=== PATIENT | female | born 1935 | race Caucasian/White ===

== ENCOUNTER 2017-05-21 19:28 | Emergency (ER) | payer OTHER ==
[2017-05-21 19:45] VITALS: BP 156/77; PULSE 75; TEMP 98.1; BMI 21.9
--- NOTE | 2017-05-21 20:18 | PDOC ---
History of Present Illness - General History Source: Patient, Family Exam Limitations: No Limitations - History of Present Illness Initial Comments: 05/21/17 20:40 The patient is an 82 year old female with past medical history of hypertension and diabetes who presents to the ED with complaints of nausea, vomiting, and diarrhea since yesterday. She also reports a throbbing heartbeat feeling in her stomach as well. The patient reports multiple episodes of nonbloody/ nonbilious vomiting yesterday with one episode today. She denies any blood in her stool. She reports the only thing she ate today was soup. The patient denies any recent illness, fever, chills, cough, shortness of breath, chest pain , or urinary symptoms. <Karma Ngo - Last Filed: 05/22/17 02:23> <Maddy Sewell - Last Filed: 05/22/17 03:20> - General Chief Complaint: Vomiting/Diarrhea Stated Complaint: VOMITING/DIARRHEA Time Seen by Provider: 05/21/17 19:51 Past History <Karma Ngo - Last Filed: 05/22/17 02:23> - Past Medical History Diabetes: Yes HTN: Yes - Surgical History Cholecystectomy: Yes - Psycho/Social/Smoking Cessation Hx Suicidal Ideation: No Smoking History: Never smoked <Maddy Sewell - Last Filed: 05/22/17 03:20> - Past Medical History Allergies/Adverse Reactions: Allergies Allergy/AdvReac Type Severity Reaction Status Date / Time No Known Allergies Allergy Verified 05/21/17 19:45 Home Medications: Ambulatory Orders NK [No Known Home Medication] 05/21/17 Review of Systems - Review of Systems Able to Perform ROS?: Yes Comments:: 05/21/17 20:40 GENERAL/CONSTITUTIONAL: No fever or chills. No weakness. HEAD, EYES, EARS, NOSE AND THROAT: No change in vision. No ear pain or discharge. No sore throat. CARDIOVASCULAR: No chest pain or shortness of breath. RESPIRATORY: No cough, wheezing, or hemoptysis. GASTROINTESTINAL: Present: nausea, vomiting, diarrhea No constipation. GENITOURINARY: No dysuria, frequency, or change in urination. MUSCULOSKELETAL: No joint or muscle swelling or pain. No neck or back pain. SKIN: No rash NEUROLOGIC: No headache, vertigo, loss of consciousness, or change in strength/ sensation. ENDOCRINE: No increased thirst. No abnormal weight change. HEMATOLOGIC/LYMPHATIC: No anemia, easy bleeding, or history of blood clots. ALLERGIC/IMMUNOLOGIC: No hives or skin allergy. <Karma Ngo - Last Filed: 05/22/17 02:23> *Physical Exam - Vital Signs Last Vital Signs Temp Pulse Resp BP Pulse Ox 98.1 F 75 18 156/77 99 05/21/17 19:43 05/21/17 19:43 05/21/17 19:43 05/21/17 19:43 05/21/17 19:43 <Karma Ngo - Last Filed: 05/22/17 02:23> - Vital Signs Last Vital Signs Temp Pulse Resp BP Pulse Ox 98.1 F 75 18 156/77 99 05/21/17 19:43 05/21/17 19:43 05/21/17 19:43 05/21/17 19:43 05/21/17 19:43 - Physical Exam Comments: GENERAL: Awake, alert, and fully oriented, in no acute distress HEAD: No signs of trauma EYES: PERRLA, EOMI, sclera anicteric, conjunctiva clear ENT: Auricles normal inspection, hearing grossly normal, nares patent, oropharynx clear without exudates. Dry mucosa NECK: Normal ROM, supple, no lymphadenopathy, JVD, or masses LUNGS: Breath sounds equal, clear to auscultation bilaterally. No wheezes, and no crackles HEART: Regular rate and rhythm, normal S1 and S2, no murmurs, rubs or gallops ABDOMEN: Soft, nontender, +hyperactive bowel sounds. No guarding, no rebound. +Prominent aortic pulsation in mid-abdomen. EXTREMITIES: Normal range of motion, no edema. No clubbing or cyanosis. No cords, erythema, or tenderness NEUROLOGICAL: Cranial nerves II through XII grossly intact. Normal speech, normal gait SKIN: Warm, Dry, normal turgor, no rashes or lesions noted. <Maddy Sewell - Last Filed: 05/22/17 03:20> ED Treatment Course - LABORATORY CBC & Chemistry Diagram: 05/21/17 21:22 05/21/17 21:22 - RADIOLOGY Radiograph Interpretation: 05/22/17 02:23 EXAM: CTA ABDOMEN AND PELVIS and CTA CHEST CHEST No pulmonary embolism. No aortic dissection or aneurysm. No pneumonia or pleural effusions. ABDOMEN/ PELVIS No aortic dissection or aneurysm. Hepatic and splenic arteries each originate from aorta. No bowel obstruction, colitis, or free air. Appendix not seen. Unremarkable pancreas. Cortical scarring left greater than right kidneys. Heterogeneous liver attenuation, possibly transient hepatic attenuation differences. Cholecystectomy. Small ascites. THIS DOCUMENT HAS BEEN ELECTRONICALLY SIGNED Tonia Hanks M.D. <Karma Ngo - Last Filed: 05/22/17 02:23> - LABORATORY CBC & Chemistry Diagram: 05/21/17 21:22 05/21/17 21:22 <Maddy Sewell - Last Filed: 05/22/17 03:20> Medical Decision Making - Medical Decision Making CT read by imaging online advertising analyst. No acute findings- no dissection, no aneurysm. Patient states she is feeling better, able to tolerate PO. Stable for DC home, outpatient f/u with PMD. <Maddy Sewell - Last Filed: 05/22/17 03:20> *DC/Admit/Observation/Transfer - Attestations Scribe Attestion: 05/21/17 20:41 Documentation prepared by Karma Ngo, acting as medical record clerk for Maddy Sewell MD. <Karma Ngo - Last Filed: 05/22/17 02:23> - Discharge Dispostion Admit: No <Maddy Sewell - Last Filed: 05/22/17 03:20> Diagnosis at time of Disposition: Nausea vomiting and diarrhea - Discharge Dispostion Disposition: HOME Condition at time of disposition: Stable - Referrals Referrals: Elizabeth Chilel MD [Primary Care Provider] - - Patient Instructions Printed Discharge Instructions: DI for Vomiting -- Adult Print Language: INDONESIAN
[2017-05-21] MEDS ORDERED: FAMOTIDINE 20 MG/50 ML IVPB 50 ML IVPB ONE ×2 (20:20→20:58)
[2017-05-21] MEDS ORDERED: SODIUM CHLORIDE 1,000 ML IV STA (20:20)
[2017-05-21] MEDS ORDERED: ONDANSETRON 4 MG/2 ML VIAL IVPUSH ONE (20:20)
[2017-05-21] MEDS ORDERED: ONDANSETRON 4 MG/2 ML VIAL ONE (20:57)
[2017-05-21 21:32] LABS: BASOPHIL 1.2 % (0-2.0); MCH 28.1 pg (25.7-33.7); MCHC 34.7 g/dl (32.0-36.0); MEAN PLT VOLUME 7.7 fl (7.5-11.1); NEUTROPHILS 58.3 % (42.8-82.8); PLATELET COUNT 255 K/MM3 (134-434); RDW 14.4 % (11.6-15.6); WHITE BLOOD COUNT 5.8 K/mm3 (4.0-10.0)
[2017-05-21 21:34] LABS: URINE APPEARANCE CLEAR; URINE BILIRUBIN NEGATIVE (NEGATIVE); URINE BLOOD NEGATIVE (NEGATIVE); URINE COLOR COLORLESS; URINE GLUCOSE (UA) NEGATIVE (NEGATIVE); URINE KETONE TRACE (NEGATIVE); URINE NITRITE NEGATIVE (NEGATIVE); URINE PROTEIN NEGATIVE (NEGATIVE); URINE UROBILINOGEN NEGATIVE mg/dL (0.2-1.0)
[2017-05-21 21:39] LABS: URINE LEUK ESTERASE TRACE (NEGATIVE)
[2017-05-21 21:41] LABS: URINE RBC 1 /hpf (0-3); URINE WBC 9 /hpf (3-5)
[2017-05-21 22:09] LABS: ALBUMIN 4.2 g/dl (3.4-5.0); ALK PHOS 86 U/L (45-117); ANION GAP 8 (8-16); BILIRUBIN,TOTAL 0.5 mg/dL (0.2-1.0); CALCIUM 9.7 mg/dL (8.5-10.1); CO2 31 mmol/L (21-32); GLUCOSE,RANDOM 101 mg/dL (74-106); SGOT/AST 24 U/L (15-37); SGPT/ALT 20 U/L (12-78); TOT PROT 7.6 g/dl (6.4-8.2)
== END 2017-05-22 02:46 | disposition home or self-care (01) ==
LOC: JER 19:28
PROC: 3E033GC Introduction of Other Therapeutic Substance into Peripheral Vein, Percutaneous Approach (ICD-10-PCS; principal; 2017-05-21)
DX: R11.2 Nausea with vomiting, unspecified (principal); R19.7 Diarrhea, unspecified
CPT/HCPCS: 36415; 71275-TC; 74174-TC; 80053; 81003; 81015; 83605; 83690; 85025; 96365; 96375; 99282-25

== ENCOUNTER 2018-06-04 09:02 | Inpatient (IN) | payer OTHER ==
[2018-06-04 09:07] VITALS: BMI 17.2
[2018-06-04] MEDS ORDERED: ONDANSETRON 4 MG/2 ML VIAL IVPB ONE (09:35)
[2018-06-04] MEDS ORDERED: FAMOTIDINE 20 MG/50 ML IVPB 20 MG/50 ML MG IVPB ONE (09:35)
[2018-06-04] MEDS ORDERED: SODIUM CHLORIDE 1,000 ML IV ONE ×3 (09:35→11:31)
[2018-06-04] MEDS ORDERED: ONDANSETRON 4 MG/2 ML VIAL ONE (09:40)
[2018-06-04 09:53] LABS: BASO % 0.5 % (0-2.0); EOS % 0.3 % (0-4.5); HEMATOCRIT 38.8 % (32.4-45.2); HEMOGLOBIN 13.9 GM/dL (10.7-15.3); LYMPH % 17.7 % (8-40); MCH 28.5 pg (25.7-33.7); MCHC 35.9 g/dl (32.0-36.0); MEAN CELL VOLUME 79.3 fl (80-96); MEAN PLT VOLUME 7.8 fl (7.5-11.1); MONO % 5.6 % (3.8-10.2); NEUT % 75.9 % (42.8-82.8); PLATELET COUNT 322 K/MM3 (134-434); RBC 4.89 M/mm3 (3.60-5.2); RDW 13.8 % (11.6-15.6); WHITE BLOOD COUNT 5.3 K/mm3 (4.0-10.0)
[2018-06-04 09:57] LABS: URINE APPEARANCE CLEAR; URINE BILIRUBIN NEGATIVE (<2.0 mg/dL); URINE COLOR STRAW; URINE GLUCOSE (UA) NEGATIVE (NEGATIVE); URINE KETONE TRACE (NEGATIVE); URINE LEUK ESTERASE NEGATIVE (NEGATIVE); URINE NITRITE NEGATIVE (NEGATIVE); URINE UROBILINOGEN NEGATIVE mg/dL (0.2-1.0)
--- NOTE | 2018-06-04 10:07 | PDOC ---
History of Present Illness <Markus Hooks - Last Filed: 06/04/18 11:14> - General History Source: Patient Exam Limitations: No Limitations - History of Present Illness Initial Comments: 06/04/18 10:21 The patient is an 83-year-old, with a significant past medical history of HTN, diabetes, and chronic gastritis, who presents to the ED with a gastritis flare up today. The patient was recently admitted to the [facility] 2 weeks ago for gastritis symptoms and was rehydrated. She presents to the ED with upper abdominal pain with nonbloody/nonbilious vomiting. She reports that her symptoms are sometimes associated with diarrhea, but not on this occasion; stool is soft and nonbloody. Last endoscopy was 1 year ago. Patient is s/p gallbladder and appendix removal. The patient denies any fever, chills, or diarrhea. Denies any shortness of breath or chest pain. Allergies: NKA Surgical History: cholecystectomy and appendectomy Social History: None reported <Amy Rowley - Last Filed: 06/04/18 11:57> - General Chief Complaint: Nausea/Vomiting Stated Complaint: VOMITING Time Seen by Provider: 06/04/18 09:20 Past History - Past Medical History COPD: No Diabetes: Yes GI Disorders: Yes (gastritis) HTN: Yes - Surgical History Cholecystectomy: Yes - Suicide/Smoking/Psychosocial Hx Smoking History: Never smoked <Markus Hooks - Last Filed: 06/04/18 11:14> <Amy Rowley - Last Filed: 06/04/18 11:57> - Past Medical History Allergies/Adverse Reactions: Allergies Allergy/AdvReac Type Severity Reaction Status Date / Time No Known Allergies Allergy Verified 06/04/18 09:03 Home Medications: Ambulatory Orders Clonidine HCl 0.1 mg PO DAILY 06/04/18 Hydrochlorothiazide 12.5 mg PO DAILY 06/04/18 Valsartan 320 mg PO DAILY 06/04/18 Review of Systems - Review of Systems Constitutional: Yes: Weakness. No: Chills, Fever Respiratory: No: Cough, Shortness of Breath Cardiac (ROS): No: Chest Pain, Palpitations, Syncope ABD/GI: Yes: Nausea, Vomiting. No: Diarrhea : No: Dysuria All Other Systems: Reviewed and Negative <Markus Hooks - Last Filed: 06/04/18 11:14> - Review of Systems Able to Perform ROS?: Yes <Amy Rowley - Last Filed: 06/04/18 11:57> *Physical Exam - Vital Signs Last Vital Signs Temp Pulse Resp BP Pulse Ox 98.1 F 83 20 207/107 100 06/04/18 09:04 06/04/18 09:30 06/04/18 09:30 06/04/18 09:30 06/04/18 09:30 <Markus Hooks - Last Filed: 06/04/18 11:14> - Vital Signs Last Vital Signs Temp Pulse Resp BP Pulse Ox 98.1 F 83 20 207/107 100 06/04/18 09:04 06/04/18 09:30 06/04/18 09:30 06/04/18 09:30 06/04/18 09:30 - Physical Exam Comments: 06/04/18 10:21 GENERAL: The patient is elderly, asleep, but arousable, in no acute distress. HEAD: Normal with no signs of trauma. EYES: Pupils equal, round and reactive to light, extraocular movements intact, sclera anicteric, conjunctiva clear with no pallor. ENT:(+)Very dry mucosa. Ears normal, nares patent, oropharynx clear without exudates. NECK: Normal range of motion, supple without lymphadenopathy, JVD, or masses. LUNGS: Breath sounds equal, clear to auscultation bilaterally. No wheeze/ crackles. HEART: Regular rate and rhythm, normal S1 and S2 without murmur or rub. ABDOMEN: (+)Epigastric discomfort to palpation. Soft/nondistended. BS wnl. No guarding or rebound. No palpable masses. No hepatosplenomegaly. EXTREMITIES: Normal range of motion, no edema. No clubbing or cyanosis. No cords, erythema, or tenderness. NEUROLOGICAL: Cranial nerves II through XII grossly intact. Gait deferred. PSYCH: Normal mood, normal affect. SKIN: Warm, Dry, normal turgor, no rashes or lesions noted. <Amy Rowley - Last Filed: 06/04/18 11:57> Heart Score/ECG Review #1 ECG reviewed & interpreted by me at: 09:46 General ECG Interpretation: Sinus Rhythm (occasional APC), Normal Rate (82), Normal Intervals (LBBB QRS 142, QTC 530), No acute ischemic changes <Markus Hooks - Last Filed: 06/04/18 11:14> ED Treatment Course - LABORATORY CBC & Chemistry Diagram: 06/04/18 09:39 06/04/18 09:39 - Medications Given in the ED: ED Medications Discontinued Medications Generic Name Dose Route Start Last Admin Trade Name Freq PRN Reason Stop Dose Admin Ondansetron HCl 8 mg 06/04/18 09:35 06/04/18 09:49 Zofran Injection IVPB 06/04/18 09:36 8 mg ONCE ONE Administration <Markus Hooks - Last Filed: 06/04/18 11:14> - LABORATORY CBC & Chemistry Diagram: 06/04/18 09:39 06/04/18 09:39 - ADDITIONAL ORDERS Additional order review: Laboratory Results 06/04/18 06/04/18 09:39 09:39 Lactic Acid 2.9 H* Urine Color Straw Urine Appearance Clear Urine pH 8.0 Ur Specific [place] 1.008 Urine Protein 2+ H Urine Glucose (UA) Negative Urine Ketones Trace H Urine Blood 1+ H Urine Nitrite Negative Urine Bilirubin Negative Urine Urobilinogen Negative Ur Leukocyte Esterase Negative Urine WBC (Auto) <1 Urine RBC (Auto) 7 Ur Epithelial Cells Rare Hyaline Casts 1 06/04/18 09:39 RBC 4.89 MCV 79.3 L MCHC 35.9 RDW 13.8 MPV 7.8 Neutrophils % 75.9 D Lymphocytes % 17.7 D Monocytes % 5.6 Eosinophils % 0.3 D Basophils % 0.5 - RADIOLOGY Radiology Studies Ordered: 06/04/18 11:57 Chest X-Ray was reviewed by Dr. Hooks and over-read by Radiology. Impression: No active pulmonary disease. - Medications Given in the ED: ED Medications Discontinued Medications Generic Name Dose Route Start Last Admin Trade Name Freq PRN Reason Stop Dose Admin Famotidine/Sodium Chloride 20 mg in 50 mls @ 100 mls/hr 06/04/18 09:35 09:55 Pepcid 20 Mg Premixed Ivpb - IVPB 06/04/18 10:04 100 mls/hr ONCE ONE Administration Ondansetron HCl 8 mg 06/04/18 09:35 06/04/18 09:49 Zofran Injection IVPB 06/04/18 09:36 8 mg ONCE ONE Administration <Amy Rowley - Last Filed: 06/04/18 11:57> Medical Decision Making - Medical Decision Making 06/04/18 10:13 A portion of this note was documented by scribe services under my direction. I have reviewed the details of the note, within reason, and agree with the documentation with the following case summary and management plan written by me. 83-year-old female with history of chronic gastritis and multiple admissions in the past, most recently 2 weeks ago now presents with 2 days intractable vomiting and epigastric pain similar to her past gastritis. No cardiopulmonary complaints or findings, elevated blood pressure in the setting of not being able to tolerate her antihypertensives. Abdomen is benign, vitals are within normal limits but appears very dehydrated. Check labs, EKG IV fluid hydration, antiemetics, antacids Reassess, likely readmission 06/04/18 10:50 cbc wnl, chem notable for hypo-Na/Cl with elevated lactate 2.9. Appears and feels slightly improved after IVF and antiemetics. Given doses of her BP meds. Will proceed with obs med/surg, accepted by Dr. Esqueda, signout given to SCOT Fischer 06/04/18 11:14 CXR shows no acute pathology <Markus Hooks - Last Filed: 06/04/18 11:14> *DC/Admit/Observation/Transfer - Discharge Dispostion Decision to Admit order: Yes <Markus Hooks - Last Filed: 06/04/18 11:14> - Attestations Scribe Attestion: 06/04/18 10:28 Documentation prepared by Amy Rowley, acting as bacteriologist medical for Markus Hooks MD. <Amy Rowley - Last Filed: 06/04/18 11:57> Diagnosis at time of Disposition: Elevated lactic acid level Chronic gastritis Qualifiers: Gastritis type: unspecified gastritis Gastritis bleeding: without bleeding Qualified Code(s): K29.50 - Unspecified chronic gastritis without bleeding - Discharge Dispostion Condition at time of disposition: Fair
[2018-06-04 10:09] LABS: URINE PROTEIN 2+ (NEGATIVE)
[2018-06-04 10:10] LABS: EPI CELLS RARE /HPF (FEW); URINE HYALINE CAST 1 /lpf
[2018-06-04 10:18] LABS: MAGNESIUM 1.5 mg/dL (1.8-2.4)
[2018-06-04 10:19] LABS: ALBUMIN 4.3 g/dl (3.4-5.0); ALK PHOS 90 U/L (45-117); ANION GAP 15 (8-16); BILIRUBIN,TOTAL 0.8 mg/dL (0.2-1.0); BLOOD UREA NITROGEN 10 mg/dL (7-18); CALCIUM 10.1 mg/dL (8.5-10.1); CHLORIDE 89 mmol/L (98-107); CO2 26 mmol/L (21-32); CREATININE 0.9 mg/dL (0.55-1.02); GLUCOSE,RANDOM 138 mg/dL (74-106); POTASSIUM 3.4 mmol/L (3.5-5.1); SGOT/AST 18 U/L (15-37); SGPT/ALT 19 U/L (12-78); SODIUM 130 mmol/L (136-145); TOT PROT 7.8 g/dl (6.4-8.2)
[2018-06-04 10:20] LABS: LIPASE 222 U/L (73-393)
[2018-06-04] MEDS ORDERED: cloNIDine HCL 0.1 MG TABLET PO ONE (10:30)
[2018-06-04] MEDS ORDERED: VALSARTAN 40 MG TABLET (FP) PO ONE (10:30)
[2018-06-04] MEDS ORDERED: cloNIDine HCL 0.1 MG TABLET ONE (10:38)
[2018-06-04] MEDS ORDERED: VALSARTAN 80 MG TABLET (UD) ONE ×2 (10:39→12:04)
--- NOTE | 2018-06-04 11:17 | HP ---
Admitting History and Physical - Admission Chief Complaint: vomiting, diarrhea History of Present Illness: This is an 83 year old female with pmhx HTN, chronic gastritis, diabetes who presented to the ED today with 3 days nausea, vomiting "gastric phlegm" and decreased appetite. Two weeks ago patient was treated for the same at the [place] [place] [facility]. Vomitus is non bilious, non bloody, diarrhea started today. Currently , denies abdominal pain, chest pain, sob, fever, chills, palpitations. Daughter at the bedside. Per ED note: last endoscopy was 1 year ago. Patient is s/p gallbladder and appendix removal. History Source: Patient, Family Member Limitations to Obtaining History: No Limitations - Past Medical History Cardiovascular: Yes: HTN Gastrointestinal: Yes: Gastritis - Past Surgical History Past Surgical History: Yes: Appendectomy, Cholecystectomy - Smoking History Smoking history: Never smoked - Alcohol/Substance Use History of Substance Use: reports: None - Social History ADL: Family Assistance Home Medications - Allergies Allergies/Adverse Reactions: Allergies Allergy/AdvReac Type Severity Reaction Status Date / Time No Known Allergies Allergy Verified 06/04/18 09:03 - Home Medications Home Medications: Ambulatory Orders Clonidine HCl 0.1 mg PO DAILY 06/04/18 Hydrochlorothiazide 12.5 mg PO DAILY 06/04/18 Valsartan 320 mg PO DAILY 06/04/18 Review of Systems - Review of Systems Constitutional: reports: Loss of Appetite, Weakness Eyes: reports: No Symptoms HENT: reports: No Symptoms Neck: reports: No Symptoms Cardiovascular: reports: No Symptoms Respiratory: reports: No Symptoms Gastrointestinal: reports: Abdominal Pain, Diarrhea, Nausea, Vomiting Genitourinary: reports: No Symptoms Musculoskeletal: reports: No Symptoms Integumentary: reports: No Symptoms Neurological: reports: No Symptoms Endocrine: reports: No Symptoms Hematology/Lymphatic: reports: No Symptoms Psychiatric: reports: No Symptoms Physical Examination Vital Signs: Vital Signs Temperature 98.1 F 06/04/18 09:04 Pulse Rate 83 06/04/18 09:30 Respiratory Rate 20 06/04/18 09:30 Blood Pressure 207/107 06/04/18 09:30 O2 Sat by Pulse Oximetry (%) 100 06/04/18 11:00 Constitutional: Yes: Calm, Thin Eyes: Yes: Conjunctiva Clear HENT: Yes: Atraumatic Neck: Yes: Supple Cardiovascular: Yes: Regular Rate and Rhythm, S1, S2 Respiratory: Yes: Regular, CTA Bilaterally Gastrointestinal: Yes: Normal Bowel Sounds, Soft Renal/: Yes: WNL Musculoskeletal: Yes: WNL Extremities: Yes: Deformity Edema: No Integumentary: Yes: WNL Neurological: Yes: Alert, Oriented, Cran Nerves II-XII Intact Psychiatric: Yes: Alert, Oriented Labs: CBC, BMP 06/04/18 09:39 06/04/18 09:39 Imaging - Results Chest X-ray: Report Reviewed, Image Reviewed Problem List - Problems (1) Hypertension Code(s): I10 - ESSENTIAL (PRIMARY) HYPERTENSION (2) Chronic gastritis Code(s): K29.50 - UNSPECIFIED CHRONIC GASTRITIS WITHOUT BLEEDING Qualifiers: Gastritis type: unspecified gastritis Gastritis bleeding: without bleeding Qualified Code(s): K29.50 - Unspecified chronic gastritis without bleeding (3) Elevated lactic acid level Code(s): R79.89 - OTHER SPECIFIED ABNORMAL FINDINGS OF BLOOD CHEMISTRY (4) Nausea vomiting and diarrhea Code(s): R11.2 - NAUSEA WITH VOMITING, UNSPECIFIED; R19.7 - DIARRHEA, UNSPECIFIED Assessment/Plan Assessment: 83 year old female admitted with acute gastritis flare Plan: 1. Acute on chronic gastritis flare - Continue hydration with IVF - Trial clear liquids - Start protonix BID 2. HTN urgency - Diovan 40mg x1, clonidine given in ED - Will give additional 160mg as needed for goal SBP 170 for 24hrs - Clonidine 0.1mg daily - Diovan 320mg daily - Hold HCTZ 3. Electrolyte dissary - Hypokalemia: replete 20meq x1 - Hyponatremia: replete with IVF - Hypomagnesemia: replete 2gm IV x1 4. Elevated lactic acid - Continue IVF - Recheck @1400 Visit type - Emergency Visit Emergency Visit: Yes ED Registration Date: 06/04/18 Care time: The patient presented to the Emergency Department on the above date and was hospitalized for further evaluation of their emergent condition. - New Patient This patient is new to me today: Yes Date on this admission: 06/04/18 - Critical Care Critical Care patient: No Hospitalist Screening - Colonoscopy Questionnaire Colonoscopy Questionnaire: Colonoscopy Questionnaire - Patient: 50 - 75 years old and never had a screening colonoscopy: Unknown History of colon or rectal polyps, or CA: Unknown History of IBD, Crohn's disease or UC: Unknown History of abdominal radiation therapy as a child: Unknown - Relative: 1 with colon or rectal CA, or polyps at age 60 or younger: Unknown Colon or rectal CA diagnosed at age 45 or younger: Unknown Multiple relatives with colon or rectal CA: Unknown - Outcome: Screening Result: Negative Screen
[2018-06-04] MEDS ORDERED: ONDANSETRON 4 MG/2 ML VIAL IVPUSH PRN (11:24)
[2018-06-04] MEDS ORDERED: VALSARTAN 40 MG TABLET (FP) PO SCH (11:30)
[2018-06-04] MEDS ORDERED: POTASSIUM CHLORIDE ORAL LIQUID 20 MEQ/15 ML PO ONE (11:31)
[2018-06-04] MEDS ORDERED: MAGNESIUM SULF 50% (8.12 MEQ/2 ML-1 GM VIAL) IVPB ONE (12:00)
[2018-06-04] MEDS ORDERED: POTASSIUM CHLORIDE ORAL LIQUID 20 MEQ/15 ML ONE (12:03)
[2018-06-04] MEDS ORDERED: MAGNESIUM 1GM/D5W - 2 GM/200 ML IVPB IVPB ONE (12:03)
[2018-06-04] MEDS ORDERED: PANTOPRAZOLE SODIUM 40 MG/100 ML BAG IVPB ONE (12:03)
[2018-06-04] MEDS: PANTOPRAZOLE SODIUM 40 MG VIAL IVPUSH SCH ×2 (12:13→22:08)
[2018-06-04] MEDS ORDERED: VALSARTAN 160 MG TABLET (UD) PO ONE (12:55)
[2018-06-04] MEDS ORDERED: PNEUMOC 13-VAL CONJ-DIP CRM/PF 0.5 ML DISP.SYRIN IM ONE (15:00)
[2018-06-04] MEDS ORDERED: D5-1/2NS+20 MEQ KCL - 20 MEQ/1,000 ML INFUS.BAG IV SCH (15:15)
[2018-06-04] MEDS: SUCRALFATE 1 GM TABLET (FP) PO SCH ×2 (16:24→22:10)
[2018-06-04] MEDS ORDERED: LORazepam 2 MG/ML SDV VIAL IVPUSH ONE (16:30)
--- NOTE | 2018-06-04 16:56 | EKG ---
Test Reason : Blood Pressure : / mmHG Vent. Rate : 082 BPM Atrial Rate : 082 BPM P-R Int : 176 ms QRS Dur : 142 ms QT Int : 454 ms P-R-T Axes : 073 -41 052 degrees QTc Int : 530 ms SINUS RHYTHM WITH PREMATURE ATRIAL COMPLEXES LEFT AXIS DEVIATION LEFT BUNDLE BRANCH BLOCK ABNORMAL ECG Confirmed by MD LB, LASHON ([id number]) on 06/04/2018 4:56:15 PM Referred By: Confirmed By:LASHON ASHER MD
[2018-06-04] MEDS ORDERED: LABETALOL HCL 5 MG/1 ML (100MG/20 ML VIAL) IVPUSH ONE (17:30)
[2018-06-05] MEDS ORDERED: LORazepam 2 MG/ML SDV VIAL IVPUSH ONE (03:37)
[2018-06-05 06:40] LABS: BASO % 0.2 % (0-2.0); HEMATOCRIT 34.8 % (32.4-45.2); HEMOGLOBIN 12.9 GM/dL (10.7-15.3); LYMPH % 9.3 % (8-40); MCH 29.4 pg (25.7-33.7); MCHC 36.9 g/dl (32.0-36.0); MEAN CELL VOLUME 79.5 fl (80-96); MEAN PLT VOLUME 7.8 fl (7.5-11.1); MONO % 5.9 % (3.8-10.2); NEUT % 84.6 % (42.8-82.8); PLATELET COUNT 312 K/MM3 (134-434); RBC 4.38 M/mm3 (3.60-5.2); RDW 14.3 % (11.6-15.6)
[2018-06-05 07:19] LABS: CHLORIDE 93 mmol/L (98-107); GLUCOSE,RANDOM 119 mg/dL (74-106); POTASSIUM 3.5 mmol/L (3.5-5.1); SODIUM 129 mmol/L (136-145)
[2018-06-05 07:26] LABS: ALBUMIN 3.9 g/dl (3.4-5.0); ALK PHOS 75 U/L (45-117); ANION GAP 15 (8-16); BILIRUBIN,TOTAL 0.7 mg/dL (0.2-1.0); BLOOD UREA NITROGEN 7 mg/dL (7-18); CALCIUM 8.6 mg/dL (8.5-10.1); CO2 21 mmol/L (21-32); CREATININE 0.9 mg/dL (0.55-1.02); MAGNESIUM 1.8 mg/dL (1.8-2.4); PHOSPHOROUS 1.6 mg/dL (2.5-4.9); SGOT/AST 23 U/L (15-37); SGPT/ALT 19 U/L (12-78); TOT PROT 7.3 g/dl (6.4-8.2)
[2018-06-05] MEDS ORDERED: cloNIDine HCL 0.1 MG TABLET PO SCH (10:00)
[2018-06-05] MEDS ORDERED: VALSARTAN 40 MG TABLET (FP) PO SCH (10:00)
[2018-06-05] MEDS: SUCRALFATE 1 GM TABLET (FP) PO SCH ×2 (10:50→21:00)
[2018-06-05] MEDS: VALSARTAN 160 MG TABLET (UD) PO SCH (10:50)
[2018-06-05] MEDS: PANTOPRAZOLE SODIUM 40 MG VIAL IVPUSH SCH (10:51)
--- NOTE | 2018-06-05 11:18 | EKG ---
Test Reason : Blood Pressure : / mmHG Vent. Rate : 076 BPM Atrial Rate : 076 BPM P-R Int : 190 ms QRS Dur : 148 ms QT Int : 496 ms P-R-T Axes : 072 -39 051 degrees QTc Int : 558 ms NORMAL SINUS RHYTHM POSSIBLE LEFT ATRIAL ENLARGEMENT LEFT AXIS DEVIATION LEFT BUNDLE BRANCH BLOCK ABNORMAL ECG WHEN COMPARED WITH ECG OF 04-JUN-2018 09:46, PREMATURE ATRIAL COMPLEXES ARE NO LONGER PRESENT Confirmed by MARLEEN CORBETT, KATHY ([id number]) on 06/05/2018 11:18:19 AM Referred By: NORMA GAR Confirmed By:KATHY HAWELY MD
[2018-06-05] MEDS ORDERED: SODIUM CHLORIDE 1,000 ML IV SCH (13:15)
--- NOTE | 2018-06-05 13:17 | PN ---
Physical Exam: SUBJECTIVE: Patient seen and examined. States she is feeling better today, no vomiting, no abd pain. She was agitated last night, daughter at bedside. OBJECTIVE: Vital Signs Period Temp Pulse Resp BP Sys/Prabhakar Pulse Ox Last 24 Hr 97.5 F-99.1 F 75-106 17-22 151-211/77-107 98-98 PE Neuro: alert, awake, cn 2-12intact , mild confusion Pulm: Clear anteriorly CV: s1 s2 rrr Abd: s nt nd + bs Ext: no le edema Laboratory Results - last 24 hr 06/04/18 06/04/18 06/05/18 15:05 15:05 05:30 WBC 10.0 RBC 4.38 Hgb 12.9 Hct 34.8 MCV 79.5 L MCH 29.4 MCHC 36.9 H RDW 14.3 Plt Count 312 MPV 7.8 Absolute Neuts (auto) 8.5 Neutrophils % 84.6 H Lymphocytes % 9.3 D Monocytes % 5.9 Eosinophils % 0.0 D Basophils % 0.2 Nucleated RBC % 0 Sodium Potassium Chloride Carbon Dioxide Anion Gap BUN Creatinine Creat Clearance w eGFR Random Glucose Lactic Acid 4.4 H* Calcium Phosphorus Magnesium Total Bilirubin AST ALT Alkaline Phosphatase Total Protein Albumin Blood Type B POSITIVE 06/05/18 05:30 WBC RBC Hgb Hct MCV MCH MCHC RDW Plt Count MPV Absolute Neuts (auto) Neutrophils % Lymphocytes % Monocytes % Eosinophils % Basophils % Nucleated RBC % Sodium 129 L Potassium 3.5 Chloride 93 L Carbon Dioxide 21 Anion Gap 15 BUN 7 Creatinine 0.9 Creat Clearance w eGFR 59.80 Random Glucose 119 H Lactic Acid Calcium 8.6 Phosphorus 1.6 L Magnesium 1.8 Total Bilirubin 0.7 AST 23 ALT 19 Alkaline Phosphatase 75 D Total Protein 7.3 Albumin 3.9 Blood Type Active Medications Generic Name Dose Route Start Last Admin Trade Name Freq PRN Reason Stop Dose Admin Clonidine 0.1 mg 06/05/18 10:00 06/05/18 10:51 Catapres - PO 0.1 mg DAILY LAVERNE Administration Potassium Chloride/Dextrose/Sod Cl 20 meq in 1,000 mls @ 100 mls/hr 06/04/18 15:15 06/04/18 16:24 D5-1/2ns+20 Meq Kcl - IV 100 mls/hr ASDIR LAVERNE Administration Ondansetron HCl 4 mg 06/04/18 11:24 06/04/18 14:18 Zofran Injection IVPUSH 4 mg Q6H PRN Administration NAUSEA Pantoprazole Sodium 40 mg 06/04/18 11:30 06/05/18 10:51 Protonix Iv IVPUSH 40 mg BID LAVERNE Administration Sucralfate 1 gm 06/04/18 16:15 06/05/18 10:50 Carafate - PO 1 gm BID LAVERNE Administration Valsartan 320 mg 06/05/18 10:00 06/05/18 10:50 Diovan - PO 320 mg DAILY LAVERNE Administration Assessment: 83 year old female admitted with acute gastritis flare Plan: 1. Acute on chronic gastritis flare - Improved today - CTAP ordered - Home with protonix daily if tolerating PO - Change fluids NS 75cc/hr - Encourage po intake 2. HTN urgency - Improved today, required x1 dose labetalol - Clonidine 0.1mg daily - Diovan 320mg daily - Hold HCTZ 3. Electrolyte dissary - Hypokalemia: resolved - Hyponatremia: replete with IVF - Hypomagnesemia: resolved - Hypophosphatemia: replete 15mmol potassium phosphate 4. Elevated lactic acid - Check level now 5. Delirium - Likely due to residual ativan dose - If worsens obtain head CT Problem List - Problems (1) Hypertension Code(s): I10 - ESSENTIAL (PRIMARY) HYPERTENSION (2) Chronic gastritis Code(s): K29.50 - UNSPECIFIED CHRONIC GASTRITIS WITHOUT BLEEDING Qualifiers: Gastritis type: unspecified gastritis Gastritis bleeding: without bleeding Qualified Code(s): K29.50 - Unspecified chronic gastritis without bleeding (3) Elevated lactic acid level Code(s): R79.89 - OTHER SPECIFIED ABNORMAL FINDINGS OF BLOOD CHEMISTRY (4) Nausea vomiting and diarrhea Code(s): R11.2 - NAUSEA WITH VOMITING, UNSPECIFIED; R19.7 - DIARRHEA, UNSPECIFIED Visit type - Emergency Visit Emergency Visit: Yes ED Registration Date: 06/04/18 Care time: The patient presented to the Emergency Department on the above date and was hospitalized for further evaluation of their emergent condition. - New Patient This patient is new to me today: No - Critical Care Critical Care patient: No
[2018-06-05] MEDS ORDERED: POTASSIUM PHOSPHATE 15 MM in DEXTROSE 5%-WATER - 250 ML IVPB ONE (15:30)
[2018-06-05] MEDS ORDERED: ONDANSETRON 4 MG/2 ML VIAL IVPUSH PRN (21:22)
[2018-06-06] MEDS ORDERED: METOCLOPRAMIDE HCL INJECTION 10 MG/2 ML VIAL IVPUSH ONE (03:37)
--- NOTE | 2018-06-06 03:55 | HOSP ---
Subjective - Review of Symptoms Events since last encounter: called to see patient by RN who reports pt with elevated BP, decreased mental status and spitting up. Pt previously was alert, now somnolent. Subjective: Pt denies abdominal pain, nausea. shakes her head yes when asked if all is well. Physical Examination Vital Signs: Vital Signs Temperature 98.7 F 06/05/18 22:00 Pulse Rate 80 06/05/18 22:00 Respiratory Rate 17 06/05/18 22:00 Blood Pressure 134/76 06/05/18 22:00 O2 Sat by Pulse Oximetry (%) 98 06/05/18 19:00 Constitutional: Yes: Calm Cardiovascular: Yes: Regular Rate and Rhythm, S1, S2 Respiratory: Yes: CTA Bilaterally Gastrointestinal: Yes: Normal Bowel Sounds, Soft. No: Tenderness Neurological: Yes: Other (sleeping on initial approach but after coaxing, pt alert and communicative but remains disoriented to place and time) Labs: CBC, BMP 06/05/18 05:30 06/05/18 05:30 Hospitalist Encounter Assessment: gastritis - given zofran. If no improvement in spitting up will give reglan IV BP elevated 180s/90s then 160s/90s - cont to monitor for now, if remains elevated can give IV labetalol or IV hydralazine AMS - returned to baseline after much coaxing and sitting patient up and repositioning for comfort. no further intervention.
[2018-06-06] MEDS ORDERED: hydrALAZINE HCL 20 MG/ML VIAL IVPUSH ONE (04:57)
[2018-06-06 07:02] LABS: ANION GAP 12 (8-16); BLOOD UREA NITROGEN 6 mg/dL (7-18); CALCIUM 8.5 mg/dL (8.5-10.1); CHLORIDE 89 mmol/L (98-107); CO2 26 mmol/L (21-32); CREATININE 0.7 mg/dL (0.55-1.02); GLUCOSE,RANDOM 101 mg/dL (74-106); PHOSPHOROUS 2.9 mg/dL (2.5-4.9); POTASSIUM 3.2 mmol/L (3.5-5.1); SODIUM 127 mmol/L (136-145)
[2018-06-06] MEDS: POTASSIUM CHLORIDE TABS 20 MEQ TABLET.ER (FP) PO SCH ×2 (09:05→14:17)
[2018-06-06] MEDS ORDERED: cloNIDine HCL 0.1 MG TABLET PO SCH (10:00)
--- NOTE | 2018-06-06 10:22 | PN ---
Physical Exam: SUBJECTIVE: Patient seen and examined at bedside. Denies complaints. Report overnight of some wretching. Son and daughter present Following additional history obtained: 1. [place] lives [place] 2. In 07/2017 she was seen by Drs. Dorys Chilel (PCP) and Clive Malik (GI ) in [facility] for chronic GI issues; they prescribed anti-hypertensives and GI meds, this was confirmed with pharmacy 3. Patient returned to ; saw machine setup operator in and he prescribed anti- hypertensives 3. Came back to [place] in 04/2018; hospitalized at [facility] and now at [facility] with same GI complaints; the only meds patient has been taking are those prescribed in and include clonidine, alprazolam, Valsartan, HCTZ OBJECTIVE: Vital Signs Period Temp Pulse Resp BP Sys/Prabhakar Pulse Ox Last 24 Hr 98.3 F-99.6 F 63-104 16-22 134-194/65-97 98-98 GENERAL: The patient is sleeping but easily arousable, in no acute distress. LUNGS: Breath sounds equal, clear to auscultation bilaterally, no wheezes, no crackles, no accessory muscle use. HEART: Regular rate and rhythm, S1, S2 ABDOMEN: Soft, nontender, nondistended EXTREMITIES: 2+ pulses, warm, well-perfused, no edema. NEUROLOGICAL: Cranial nerves II through XII grossly intact. Laboratory Results - last 24 hr 06/05/18 06/05/18 06/06/18 13:40 16:42 03:32 Sodium Potassium Chloride Carbon Dioxide Anion Gap BUN Creatinine Creat Clearance w eGFR POC Glucometer 125 125 Random Glucose Serum Osmolality Lactic Acid 1.5 Calcium Phosphorus 06/06/18 06/06/18 05:30 05:30 Sodium 127 L Potassium 3.2 L Chloride 89 L Carbon Dioxide 26 Anion Gap 12 BUN 6 L Creatinine 0.7 Creat Clearance w eGFR > 60 POC Glucometer Random Glucose 101 Serum Osmolality 256 L Lactic Acid Calcium 8.5 Phosphorus 2.9 Active Medications Generic Name Dose Route Start Last Admin Trade Name Freq PRN Reason Stop Dose Admin Clonidine 0.1 mg 06/06/18 10:00 Catapres - PO DAILY [facility] Pantoprazole Sodium 40 mg 06/06/18 10:00 Protonix - PO DAILY [facility] Potassium Chloride 40 meq 06/06/18 09:15 K-Dur - PO 06/06/18 15:16 Q6H [facility] Sucralfate 1 gm 06/04/18 16:15 06/05/18 21:00 Carafate - PO 1 gm BID [facility] Administration Valsartan 320 mg 06/05/18 10:00 06/05/18 10:50 Diovan - PO 320 mg DAILY [facility] Administration ASSESSMENT/PLAN 83 year-old female with a PMH significant for HTN, NIDDM, and chronic gastritis. Admitted for vomiting and abdominal pain. Hyponatremia --appears euvolemic --Na worsening on IV fluids; plasma osm low; stop IV fluids, fluid restrict --restart HCTZ --renal consult Nausea/Vomiting --no nausea or vomiting today --QTc 558 --avoid Zofran, Reglan --very low dose ativan for nausea Chronic gastritis --carafate BID --protonix daily --second hospitalization this month, chronic issues; unclear if patient has ever been scoped; daughter denies h/o ulcers, cancer, bleeding --GI consult Hypertension --labile BP --patient had been on 3 meds in September 2017: amlodipine, valsartan, HCTZ; will restart meds --stop clonidine NIDDM --daughter states patient is not really diabetic but has taken Actos in past --HgbA1C ordered --Novolog sliding scale coverage Hypokalemia --repleted with PO FEN Fluids: PO intake adequate Electrolytes: replete as indicated Nutrition: low sodium full liquids DVT prophylaxis: subq heparin, oob, ambulation Physical therapy Dispo: continues to require inpatient care. Full code. Visit type - Emergency Visit Emergency Visit: Yes ED Registration Date: 06/05/18 Care time: The patient presented to the Emergency Department on the above date and was hospitalized for further evaluation of their emergent condition. - New Patient This patient is new to me today: Yes Date on this admission: 06/06/18 - Critical Care Critical Care patient: No
[2018-06-06] MEDS: VALSARTAN 160 MG TABLET (UD) PO SCH (11:07)
[2018-06-06] MEDS: PANTOPRAZOLE 40 MG TABLET (FP) PO SCH (11:08)
[2018-06-06] MEDS: SUCRALFATE 1 GM TABLET (FP) PO SCH ×2 (11:08→22:50)
[2018-06-06] MEDS ORDERED: LORazepam 0.5 MG TABLET PO PRN (11:35)
[2018-06-06] MEDS ORDERED: HYDROCHLOROTHIAZIDE 12.5 MG CAPSULE (FP) PO SCH (11:45)
--- NOTE | 2018-06-06 11:53 | CON.GI ---
Consult Consult Specialty:: GI Reason for Consultation:: nause and vomiting - History of Present Illness History of Present Illness: Chart reviewed. Events, H&P noted, Per initial intake: This is an 83 year old female with pmhx HTN, chronic gastritis, diabetes who presented to the ED today with 3 days nausea, vomiting "gastric phlegm" and decreased appetite. Two weeks ago patient was treated for the same at the [facility]. Vomitus is non bilious, non bloody, diarrhea started today. Currently, denies abdominal pain, chest pain, sob, fever, chills , palpitations. Daughter at the bedside. Per ED note: last endoscopy was 1 year ago. Patient is s/p gallbladder and appendix removal. \\ At the time of this encounter, the pt reports feeling well. Deneis nausea, dyspepsia, abdominal pain, changes in bms. She had a negative for gastritis, ulcers, or reflux esophagitis EGD 1 y ago with her radiology assistant, per pt's relative who was helping translating. - History Source History Provided By: Patient, Family Member, Medical Record - Past Medical History Cardio/Vascular: Yes: HTN Gastrointestinal: Yes: Gastritis ...: No - Past Surgical History Past Surgical History: Yes: Appendectomy, Cholecystectomy - Alcohol/Substance Use Hx Alcohol Use: No History of Substance Use: reports: None - Smoking History Smoking history: Never smoked Have you smoked in the past 12 months: No - Social History ADL: Family Assistance Home Medications - Allergies Allergies/Adverse Reactions: Allergies Allergy/AdvReac Type Severity Reaction Status Date / Time No Known Allergies Allergy Verified 06/04/18 09:03 - Home Medications Home Medications: Ambulatory Orders Clonidine HCl 0.1 mg PO DAILY 06/04/18 Hydrochlorothiazide 12.5 mg PO DAILY 06/04/18 Valsartan 320 mg PO DAILY 06/04/18 Family Disease History - Family Disease History Family History: Unremarkable Review of Systems Findings/Remarks: as per H&P, ED, HPI Physical Exam-GI Vital Signs: Vital Signs Temperature 98.3 F 06/06/18 05:57 Pulse Rate 95 H 06/06/18 05:57 Respiratory Rate 16 06/06/18 05:57 Blood Pressure 139/65 06/06/18 05:57 O2 Sat by Pulse Oximetry (%) 98 06/06/18 03:00 Constitutional: Yes: Well Nourished, No Distress, Calm Eyes: Yes: Conjunctiva Clear HENT: Yes: Atraumatic Neck: Yes: Supple Cardiovascular: Yes: Regular Rate and Rhythm Respiratory: Yes: Regular Gastrointestinal Inspection: No: Ascites, Distention ...Auscultate: Yes: Normoactive Bowel Sounds ...Palpate: No: Firm/Rigid, Guarding, Mass, Tenderness, Tenderness, Epigastium, Tenderness, Rebound Neurological: Yes: Alert, Oriented Labs: CBC, BMP 06/05/18 05:30 06/06/18 05:30 Laboratory Last Values WBC 10.0 K/mm3 (4.0-10.0) 06/05/18 05:30 RBC 4.38 M/mm3 (3.60-5.2) 06/05/18 05:30 Hgb 12.9 GM/dL (10.7-15.3) 06/05/18 05:30 Hct 34.8 % (32.4-45.2) 06/05/18 05:30 MCV 79.5 fl (80-96) L 06/05/18 05:30 MCH 29.4 pg (25.7-33.7) 06/05/18 05:30 MCHC 36.9 g/dl (32.0-36.0) H 06/05/18 05:30 RDW 14.3 % (11.6-15.6) 06/05/18 05:30 Plt Count 312 K/MM3 (134-434) 06/05/18 05:30 MPV 7.8 fl (7.5-11.1) 06/05/18 05:30 Absolute Neuts (auto) 8.5 # 06/05/18 05:30 Neutrophils % 84.6 % (42.8-82.8) H 06/05/18 05:30 Lymphocytes % 9.3 % (8-40) D 06/05/18 05:30 Monocytes % 5.9 % (3.8-10.2) 06/05/18 05:30 Eosinophils % 0.0 % (0-4.5) D 06/05/18 05:30 Basophils % 0.2 % (0-2.0) 06/05/18 05:30 Nucleated RBC % 0 % (0-0) 06/05/18 05:30 Sodium 127 mmol/L (136-145) L 06/06/18 05:30 Potassium 3.2 mmol/L (3.5-5.1) L 06/06/18 05:30 Chloride 89 mmol/L (98-107) L 06/06/18 05:30 Carbon Dioxide 26 mmol/L (21-32) 06/06/18 05:30 Anion Gap 12 (8-16) 06/06/18 05:30 BUN 6 mg/dL (7-18) L 06/06/18 05:30 Creatinine 0.7 mg/dL (0.55-1.02) 06/06/18 05:30 Creat Clearance w eGFR > 60 (>60) 06/06/18 05:30 POC Glucometer 125 UNITS (80-120) 06/06/18 03:32 Random Glucose 101 mg/dL (74-106) 06/06/18 05:30 Hemoglobin A1c % 6.1 % (4.8-6.0) H 06/06/18 05:30 Serum Osmolality 256 mosm/kg (278-305) L 06/06/18 05:30 Lactic Acid 1.5 mmol/L (0.0-2.0) 06/05/18 13:40 Calcium 8.5 mg/dL (8.5-10.1) 06/06/18 05:30 Phosphorus 2.9 mg/dL (2.5-4.9) 06/06/18 05:30 Magnesium 1.8 mg/dL (1.8-2.4) 06/05/18 05:30 Total Bilirubin 0.7 mg/dL (0.2-1.0) 06/05/18 05:30 AST 23 U/L (15-37) 06/05/18 05:30 ALT 19 U/L (12-78) 06/05/18 05:30 Alkaline Phosphatase 75 U/L (45-117) D 06/05/18 05:30 Creatine Kinase 67 IU/L (26-192) 06/04/18 09:39 Troponin I 0.02 ng/ml (0.00-0.05) 06/04/18 09:39 Total Protein 7.3 g/dl (6.4-8.2) 06/05/18 05:30 Albumin 3.9 g/dl (3.4-5.0) 06/05/18 05:30 Lipase 222 U/L (73-393) 06/04/18 09:39 Urine Color Straw 06/04/18 09:39 Urine Appearance Clear 06/04/18 09:39 Urine pH 8.0 (5.0-8.0) 06/04/18 09:39 Ur Specific [place] 1.008 (1.001-1.035) 06/04/18 09:39 Urine Protein 2+ (NEGATIVE) H 06/04/18 09:39 Urine Glucose (UA) Negative (NEGATIVE) 06/04/18 09:39 Urine Ketones Trace (NEGATIVE) H 06/04/18 09:39 Urine Blood 1+ (NEGATIVE) H 06/04/18 09:39 Urine Nitrite Negative (NEGATIVE) 06/04/18 09:39 Urine Bilirubin Negative (<2.0 mg/dL) 06/04/18 09:39 Urine Urobilinogen Negative mg/dL (0.2-1.0) 06/04/18 09:39 Ur Leukocyte Esterase Negative (NEGATIVE) 06/04/18 09:39 Urine WBC (Auto) <1 /hpf (3-5) 06/04/18 09:39 Urine RBC (Auto) 7 /hpf (0-3) 06/04/18 09:39 Ur Epithelial Cells Rare /HPF (FEW) 06/04/18 09:39 Hyaline Casts 1 /lpf 06/04/18 09:39 Blood Type B POSITIVE 06/04/18 15:05 Antibody Screen Negative 06/04/18 09:39 Imaging - Results Cat Scan: Pending Problem List - Problems (1) Dyspepsia Code(s): R10.13 - EPIGASTRIC PAIN Assessment/Plan An 83F with symptoms of dyspsia, which appear to resolve at this time. Negative abdominal exam. Normal HGB and liver panel. No stigmata of GI bleeding. EGD was done last year. CT A/P pending. Tolerating diet. Do not suspect pancreaticobiliary etiology based on labs. RUQ US and lipase may be helpful. Agree with PPI. No Endoscopic intervention planned. Stable from GI point of view to follow up as OP with her radiology assistant.
[2018-06-06] MEDS: amLODIPine BESYLATE 10 MG TABLET (FP) PO SCH (12:13)
--- NOTE | 2018-06-06 13:43 | CONSULT ---
Consult - text type - Consultation Consultation Note: Renal Consult for Hyponatremia This is a 83 year old woman with hx of hypertension, chronic gastritis and DM who presented with N/V and epigastric pain and noted to be hyponatremic. Pt is awake and alert and denies any N/V today. Denies any CP, SOB, confusion, lethargy, weakness. Denies drinking a lot of water. Has been on HCTZ since coming back [place] the [place]. Was given IVF in the ER with subsequent worsening of serum Na PMhx: as above Allergies: NKDA Family Hx: NC Social hx: No T/A/D ROS: as per HPI Home Medications Medication Instructions Recorded Clonidine HCl 0.1 mg PO DAILY 06/04/18 Hydrochlorothiazide 12.5 mg PO DAILY 06/04/18 Valsartan 320 mg PO DAILY 06/04/18 Vital Signs Temperature 98.3 F 06/06/18 05:57 Pulse Rate 95 H 06/06/18 05:57 Respiratory Rate 16 06/06/18 05:57 Blood Pressure 139/65 06/06/18 05:57 O2 Sat by Pulse Oximetry (%) 98 06/06/18 03:00 Intake & Output 06/03/18 06/04/18 06/05/18 06/06/18 23:59 23:59 23:59 23:59 Intake Total 440 3360 330 Output Total 400 200 Balance 440 2960 130 Weight 45.722 kg NAD awake and alert Neck supple, no JVD Dry MM RRR, No M/R CTA, no rales or wheeze soft NT/ND, no hepatomegaly No LE edema, clubbing or cyanosis no bladder distension no focal neurologic defects CBC, BMP 06/05/18 05:30 06/06/18 05:30 Laboratory Tests 05/21/17 06/04/18 06/05/18 21:22 09:39 05:30 Sodium 130 L 130 L 129 L 06/06/18 05:30 Sodium 127 L Laboratory Tests 06/06/18 06/06/18 06/06/18 05:30 05:30 05:30 Hemoglobin A1c % 6.1 H Serum Osmolality 256 L Calcium 8.5 Phosphorus 2.9 Current Medications Amlodipine Besylate (Norvasc -) 10 mg PO DAILY [facility] Last Admin: 06/06/18 12:13 Dose: 10 mg Insulin Aspart (Novolog Vial Sliding Scale -) 1 vial SQ ACHS [facility]; Protocol Lorazepam (Ativan -) 0.25 mg PO Q6H PRN PRN Reason: NAUSEA Pantoprazole Sodium (Protonix -) 40 mg PO DAILY [facility] Last Admin: 06/06/18 11:08 Dose: 40 mg Potassium Chloride (K-Dur -) 40 meq PO Q6H [facility] Stop: 06/06/18 15:16 Last Admin: 06/06/18 11:05 Dose: 40 meq Sucralfate (Carafate -) 1 gm PO BID [facility] Last Admin: 06/06/18 11:08 Dose: 1 gm Valsartan (Diovan -) 320 mg PO DAILY [facility] Last Admin: 06/06/18 11:07 Dose: 320 mg 83 year old woman with hx of hypertension, chronic gastritis and DM who presented with N/V and epigastric pain and noted to be hyponatremic. #Hypo-osmolar hyponatremia likely secondary to SIADH vs. Thiazide induced volume depletion #Hypertension #N/V with epigatric pain #hyopkalemia Would restrict fluid to 1L daily which may be difficult when pt is on a liquid diet would advance the diet per GI recommendations repeat serum na this evening d/c IVF no indication for 3% saline can consider salt tabs if urine studies consistent with SIADH but with caution as pt was very hypertensive Continue Valsartan and Amlodipine for BP control Replace serum K and repeat levels Thank you will follow Korey Carpenter DO
[2018-06-06 15:42] LABS: ANION GAP 13 (8-16); BLOOD UREA NITROGEN 14 mg/dL (7-18); CALCIUM 8.9 mg/dL (8.5-10.1); CHLORIDE 88 mmol/L (98-107); CO2 26 mmol/L (21-32); CREATININE 1.2 mg/dL (0.55-1.02); GLUCOSE,RANDOM 159 mg/dL (74-106); POTASSIUM 3.6 mmol/L (3.5-5.1); SODIUM 127 mmol/L (136-145)
[2018-06-06] MEDS: INSULIN SLIDING SCALE (NOVOLOG) 1 VIAL SQ SCH ×2 (16:28→22:57)
[2018-06-06 19:12] LABS: ANION GAP 10 (8-16); BLOOD UREA NITROGEN 16 mg/dL (7-18); CALCIUM 8.7 mg/dL (8.5-10.1); CHLORIDE 92 mmol/L (98-107); CO2 25 mmol/L (21-32); CREATININE 1.1 mg/dL (0.55-1.02); GLUCOSE,RANDOM 128 mg/dL (74-106); POTASSIUM 4.4 mmol/L (3.5-5.1); SODIUM 127 mmol/L (136-145)
[2018-06-07] MEDS: INSULIN SLIDING SCALE (NOVOLOG) 1 VIAL SQ SCH (06:11)
[2018-06-07 07:06] LABS: CHLORIDE 90 mmol/L (98-107); POTASSIUM 4.4 mmol/L (3.5-5.1); SODIUM 125 mmol/L (136-145)
[2018-06-07 07:25] LABS: ALBUMIN 3.1 g/dl (3.4-5.0); ALK PHOS 64 U/L (45-117); ANION GAP 8 (8-16); BILIRUBIN,TOTAL 0.6 mg/dL (0.2-1.0); BLOOD UREA NITROGEN 20 mg/dL (7-18); CALCIUM 8.8 mg/dL (8.5-10.1); CO2 27 mmol/L (21-32); CREATININE 1.1 mg/dL (0.55-1.02); GLUCOSE,RANDOM 115 mg/dL (74-106); MAGNESIUM 1.6 mg/dL (1.8-2.4); PHOSPHOROUS 2.5 mg/dL (2.5-4.9); SGOT/AST 22 U/L (15-37); SGPT/ALT 21 U/L (12-78); TOT PROT 5.8 g/dl (6.4-8.2)
[2018-06-07] MEDS ORDERED: LEVOTHYROXINE NA 25 MCG TABLET (FP) PO ONE (08:11)
--- NOTE | 2018-06-07 08:14 | PN ---
Physical Exam: SUBJECTIVE: Patient seen and examined at bedside. Poor appetite. OBJECTIVE: Vital Signs Period Temp Pulse Resp BP Sys/Prabhakar Pulse Ox Last 24 Hr 98.3 F-98.7 F 86-102 16-18 110-154/53-75 98-98 GENERAL: The patient is awake, alert, in no acute distress. LUNGS: Breath sounds equal, clear to auscultation bilaterally, no wheezes, no crackles, no accessory muscle use. HEART: Regular rate and rhythm, S1, S2 ABDOMEN: Soft, nontender, nondistended EXTREMITIES: 2+ pulses, warm, well-perfused, no edema. NEUROLOGICAL: Cranial nerves II through XII grossly intact. Laboratory Results - last 24 hr 06/06/18 06/06/18 06/06/18 05:30 05:30 13:40 Sodium Potassium Chloride Carbon Dioxide Anion Gap BUN Creatinine Creat Clearance w eGFR POC Glucometer Random Glucose Hemoglobin A1c % 6.1 H Serum Osmolality 256 L 260 L Calcium Phosphorus Magnesium Total Bilirubin AST ALT Alkaline Phosphatase Total Protein Albumin TSH Urine Osmolality Ur Random Sodium Urine Creatinine 06/06/18 06/06/18 06/06/18 14:30 17:30 22:53 Sodium 127 L 127 L Potassium 3.6 4.4 Chloride 88 L 92 L Carbon Dioxide 26 25 Anion Gap 13 10 BUN 14 16 Creatinine 1.2 H 1.1 H Creat Clearance w eGFR 42.90 47.43 POC Glucometer 152 Random Glucose 159 H 128 H Hemoglobin A1c % Serum Osmolality Calcium 8.9 8.7 Phosphorus Magnesium Total Bilirubin AST ALT Alkaline Phosphatase Total Protein Albumin TSH Urine Osmolality Ur Random Sodium Urine Creatinine 06/07/18 06/07/18 06/07/18 02:15 02:15 05:30 Sodium 125 L Potassium 4.4 Chloride 90 L Carbon Dioxide 27 Anion Gap 8 BUN 20 H Creatinine 1.1 H Creat Clearance w eGFR 47.43 POC Glucometer Random Glucose 115 H Hemoglobin A1c % Serum Osmolality Calcium 8.8 Phosphorus 2.5 Magnesium 1.6 L Total Bilirubin 0.6 AST 22 ALT 21 Alkaline Phosphatase 64 D Total Protein 5.8 L Albumin 3.1 L TSH 4.08 H Urine Osmolality 533 Ur Random Sodium 28 Urine Creatinine 162.0 06/07/18 05:36 Sodium Potassium Chloride Carbon Dioxide Anion Gap BUN Creatinine Creat Clearance w eGFR POC Glucometer 126 Random Glucose Hemoglobin A1c % Serum Osmolality Calcium Phosphorus Magnesium Total Bilirubin AST ALT Alkaline Phosphatase Total Protein Albumin TSH Urine Osmolality Ur Random Sodium Urine Creatinine Active Medications Generic Name Dose Route Start Last Admin Trade Name Freq PRN Reason Stop Dose Admin Amlodipine Besylate 10 mg 06/06/18 11:45 06/06/18 12:13 Norvasc - PO 10 mg DAILY [facility] Administration Insulin Aspart 1 vial 06/06/18 16:30 06/07/18 06:11 Novolog Vial Sliding Scale - SQ Not Given ACHS [facility] Protocol Levothyroxine Sodium 25 mcg 06/08/18 07:00 Synthroid - PO DAILY@0700 [facility] Levothyroxine Sodium 25 mcg 06/07/18 08:11 Synthroid - PO 06/07/18 08:12 ONCE ONE Lorazepam 0.25 mg 06/06/18 11:35 Ativan - PO Q6H PRN NAUSEA Pantoprazole Sodium 40 mg 06/06/18 10:00 06/06/18 11:08 Protonix - PO 40 mg DAILY [facility] Administration Sucralfate 1 gm 06/04/18 16:15 06/06/18 22:50 Carafate - PO 1 gm BID [facility] Administration Valsartan 320 mg 06/05/18 10:00 06/06/18 11:07 Diovan - PO 320 mg DAILY [facility] Administration ASSESSMENT/PLAN: 83 year-old female with a PMH significant for HTN, NIDDM, and chronic gastritis. Admitted for vomiting and abdominal pain. Hypo-osmolar hyponatremia --Na dropped to 125, no neuro sympotoms --urine OSM high, plasma OSM low, urine Na >20 --per renal this is consistent with ADH release, and rise in serum Cr likely related to relative hypotension from BP control --hold Valsartan --start salt tabs 1g BID --renal following Hypothyroidism --TSH elevated, start levothyroxine Nausea/Vomiting --no nausea or vomiting today --QTc 558 --avoid Zofran, Reglan --very low dose ativan for nausea Chronic gastritis --carafate BID --protonix daily --second hospitalization this month, chronic issues; had EGD last year; CTAP pending dictation --seen and evaluated by GI; no endoscopic intervention planned, stable from GI perspective; outpatient followup Hypertension --BP improved, continue amlodipine; hold Valsartan and HCTZ; stopped clonidine --if another agent needed, will add atenolol NIDDM ruled out --HgbA1C 6.1 --can stop fingersticks Hypokalemia --resolved FEN Fluids: PO intake adequate Electrolytes: replete as indicated Nutrition: diabetic DVT prophylaxis: subq heparin, oob, ambulation Physical therapy Dispo: continues to require inpatient care. Full code. Visit type - Emergency Visit Emergency Visit: Yes ED Registration Date: 06/05/18 Care time: The patient presented to the Emergency Department on the above date and was hospitalized for further evaluation of their emergent condition. - New Patient This patient is new to me today: No - Critical Care Critical Care patient: No - Discharge Referral Referred to [facility] Med P.C.: No
[2018-06-07] MEDS: SUCRALFATE 1 GM TABLET (FP) PO SCH ×3 (08:53→21:42)
[2018-06-07] MEDS: PANTOPRAZOLE 40 MG TABLET (FP) PO SCH ×2 (08:53→09:29)
[2018-06-07] MEDS: VALSARTAN 160 MG TABLET (UD) PO SCH ×2 (08:54→09:29)
[2018-06-07] MEDS: amLODIPine BESYLATE 10 MG TABLET (FP) PO SCH ×2 (08:54→09:29)
[2018-06-07 09:10] LABS: BASO % 0.5 % (0-2.0); EOS % 0.4 % (0-4.5); HEMATOCRIT 33.3 % (32.4-45.2); HEMOGLOBIN 12.1 GM/dL (10.7-15.3); LYMPH % 16.1 % (8-40); MCH 29.2 pg (25.7-33.7); MCHC 36.4 g/dl (32.0-36.0); MEAN CELL VOLUME 80.3 fl (80-96); MEAN PLT VOLUME 7.6 fl (7.5-11.1); MONO % 6.7 % (3.8-10.2); NEUT % 76.3 % (42.8-82.8); PLATELET COUNT 256 K/MM3 (134-434); RBC 4.14 M/mm3 (3.60-5.2); RDW 14.2 % (11.6-15.6); WHITE BLOOD COUNT 7.6 K/mm3 (4.0-10.0)
[2018-06-07] MEDS: MAGNESIUM 1GM/D5W 100ML - 100 ML IVPB IVPB SCH ×2 (09:24→11:00)
[2018-06-07] MEDS: SODIUM CHLORIDE 1 GM TABLET PO SCH ×2 (11:25→21:42)
--- NOTE | 2018-06-07 12:21 | PN ---
Progress Note (short form) - Note Progress Note: Renal follow up for hyponatremia Pt seen and examined at the bedside awake and alert denies any N/V but does no feel hungry making urine. Vital Signs Temperature 98.5 F 06/07/18 06:00 Pulse Rate 87 06/07/18 06:00 Respiratory Rate 18 06/07/18 06:00 Blood Pressure 154/75 06/07/18 06:00 O2 Sat by Pulse Oximetry (%) 98 06/07/18 04:00 Intake & Output 06/04/18 06/05/18 06/06/18 06/07/18 23:59 23:59 23:59 23:59 Intake Total 440 3360 690 50 Output Total 400 200 Balance 440 2960 490 50 Weight 45.722 kg NAD awake and alert MMM No JVD neck supple RRR CTA soft NT/ND No LE edema CBC, BMP 06/07/18 05:30 06/07/18 05:30 Current Medications Amlodipine Besylate (Norvasc -) 10 mg PO DAILY [facility] Last Admin: 06/07/18 09:29 Dose: Not Given Heparin Sodium (Porcine) (Heparin -) 5,000 unit SQ TID [facility] Levothyroxine Sodium (Synthroid -) 25 mcg PO DAILY@0700 [facility] Lorazepam (Ativan -) 0.25 mg PO Q6H PRN PRN Reason: NAUSEA Pantoprazole Sodium (Protonix -) 40 mg PO DAILY [facility] Last Admin: 06/07/18 09:29 Dose: Not Given Sodium Chloride (Sodium Chloride Tablet -) 1 gm PO BID [facility] Sucralfate (Carafate -) 1 gm PO BID [facility] Last Admin: 06/07/18 09:29 Dose: Not Given Valsartan (Diovan -) 320 mg PO DAILY [facility] Last Admin: 06/07/18 09:29 Dose: Not Given 83 year old woman with hx of hypertension, chronic gastritis and DM who presented with N/V and epigastric pain and noted to be hyponatremic. #Hypo-osmolar hyponatremia likely secondary to SIADH vs. Thiazide induced volume depletion #OLEG #Hypertension #N/V with epigatric pain #hyopkalemia Serum Na is unchanged, no neurological symptoms to warrant 3% saline urine studies show Na > 20 and high urine OSM consistent with ADH release Rise in serum Cr noted, likely related to relative hypotension from BP control would at this time hold Valsartan Start salt tabs 1g BID Trend BMP daily if BP > 160/100 BB like Atenolol Korey Carpenter DO
[2018-06-07] MEDS: HEPARIN NA (PORCINE) 5,000 UNITS/ML 1ML VIAL SQ SCH ×2 (14:26→21:42)
[2018-06-08] MEDS: HEPARIN NA (PORCINE) 5,000 UNITS/ML 1ML VIAL SQ SCH ×3 (06:55→22:27)
[2018-06-08 06:58] LABS: BASO % 0.6 % (0-2.0); EOS % 0.9 % (0-4.5); HEMATOCRIT 35.7 % (32.4-45.2); HEMOGLOBIN 12.9 GM/dL (10.7-15.3); LYMPH % 19.9 % (8-40); MCH 28.7 pg (25.7-33.7); MCHC 36.3 g/dl (32.0-36.0); MEAN CELL VOLUME 79.2 fl (80-96); MEAN PLT VOLUME 7.8 fl (7.5-11.1); MONO % 6.6 % (3.8-10.2); PLATELET COUNT 286 K/MM3 (134-434); RDW 14.6 % (11.6-15.6); WHITE BLOOD COUNT 6.7 K/mm3 (4.0-10.0)
[2018-06-08] MEDS ORDERED: LEVOTHYROXINE NA 25 MCG TABLET (FP) PO SCH (07:00)
[2018-06-08 07:23] LABS: ANION GAP 6 (8-16); BLOOD UREA NITROGEN 18 mg/dL (7-18); CALCIUM 9.4 mg/dL (8.5-10.1); CHLORIDE 88 mmol/L (98-107); CO2 30 mmol/L (21-32); GLUCOSE,RANDOM 116 mg/dL (74-106); POTASSIUM 3.7 mmol/L (3.5-5.1)
[2018-06-08 07:25] LABS: CREATININE 0.9 mg/dL (0.55-1.02); PHOSPHOROUS 3.7 mg/dL (2.5-4.9)
[2018-06-08 07:39] LABS: SODIUM 124 mmol/L (136-145)
[2018-06-08] MEDS: SODIUM CHLORIDE 1 GM TABLET PO SCH ×3 (08:52→22:33)
[2018-06-08] MEDS: SUCRALFATE 1 GM TABLET (FP) PO SCH ×3 (08:52→22:27)
[2018-06-08] MEDS: PANTOPRAZOLE 40 MG TABLET (FP) PO SCH ×2 (08:52→09:19)
[2018-06-08] MEDS: amLODIPine BESYLATE 10 MG TABLET (FP) PO SCH ×2 (08:52→09:19)
[2018-06-08] MEDS ORDERED: SUCRALFATE 1 GM TABLET (FP) PO SCH (09:28)
--- NOTE | 2018-06-08 11:12 | PN ---
Physical Exam: SUBJECTIVE: Patient seen and examined at bedside. Voices no complaints. OBJECTIVE: Vital Signs Period Temp Pulse Resp BP Sys/Prabhakar Pulse Ox Last 24 Hr 97.8 F-98.7 F 77-94 18-20 113-158/57-79 100 GENERAL: The patient is awake, alert, in no acute distress. LUNGS: Breath sounds equal, clear to auscultation bilaterally, no wheezes, no crackles, no accessory muscle use. HEART: Regular rate and rhythm, S1, S2 ABDOMEN: Soft, nontender, nondistended EXTREMITIES: 2+ pulses, warm, well-perfused, no edema. NEUROLOGICAL: Cranial nerves II through XII grossly intact. Laboratory Results - last 24 hr 06/07/18 06/07/18 06/08/18 05:30 05:30 05:30 WBC 6.7 RBC 4.50 Hgb 12.9 Hct 35.7 MCV 79.2 L MCH 28.7 MCHC 36.3 H RDW 14.6 Plt Count 286 MPV 7.8 Absolute Neuts (auto) 4.8 Neutrophils % 72.0 Lymphocytes % 19.9 D Monocytes % 6.6 Eosinophils % 0.9 D Basophils % 0.6 Nucleated RBC % 0 Sodium Potassium Chloride Carbon Dioxide Anion Gap BUN Creatinine Creat Clearance w eGFR Random Glucose Calcium Phosphorus Magnesium Free T3 2.8 Cortisol AM Sample 14.4 06/08/18 05:30 WBC RBC Hgb Hct MCV MCH MCHC RDW Plt Count MPV Absolute Neuts (auto) Neutrophils % Lymphocytes % Monocytes % Eosinophils % Basophils % Nucleated RBC % Sodium 124 L* Potassium 3.7 Chloride 88 L Carbon Dioxide 30 Anion Gap 6 L BUN 18 Creatinine 0.9 Creat Clearance w eGFR 59.80 Random Glucose 116 H Calcium 9.4 Phosphorus 3.7 Magnesium 2.0 Free T3 Cortisol AM Sample Active Medications Generic Name Dose Route Start Last Admin Trade Name Freq PRN Reason Stop Dose Admin Amlodipine Besylate 10 mg 06/06/18 11:45 06/08/18 09:19 Norvasc - PO Not Given DAILY [facility] Heparin Sodium (Porcine) 5,000 unit 06/07/18 14:00 06/08/18 06:55 Heparin - SQ 5,000 unit TID [facility] Administration Levothyroxine Sodium 25 mcg 06/08/18 07:00 06/08/18 06:55 Synthroid - PO 25 mcg DAILY@0700 [facility] Administration Lorazepam 0.25 mg 06/06/18 11:35 Ativan - PO Q6H PRN NAUSEA Pantoprazole Sodium 40 mg 06/06/18 10:00 06/08/18 09:19 Protonix - PO Not Given DAILY [facility] Sodium Chloride 1 gm 06/07/18 11:00 06/08/18 09:20 Sodium Chloride Tablet - PO Not Given BID [facility] Sucralfate 1 gm 06/08/18 09:28 Carafate - PO TID [facility] ASSESSMENT/PLAN: 83 year-old female with a PMH significant for HTN, NIDDM, and chronic gastritis. Admitted for vomiting and abdominal pain. Hypo-osmolar hyponatremia --Na dropped again to 124 --urine OSM high, plasma OSM low, urine Na >20 --per renal this is consistent with ADH release --repeat urine studies ordered --Cr is improved --continue to hold Valsartan --increase salt tabs 1g TID --renal following Hypothyroidism --TSH elevated, start levothyroxine Nausea/Vomiting --no further episodes --avoid Zofran, Reglan due to prolonged QTc --very low dose ativan for nausea Chronic gastritis --carafate BID --protonix daily --second hospitalization this month, chronic issues; had EGD last year; CTAP pending dictation --seen and evaluated by GI; no endoscopic intervention planned, stable from GI perspective; outpatient followup Hypertension --BP elevated, start atenolol 25mg daily; continue amlodipine; hold Valsartan and HCTZ; stopped clonidine NIDDM ruled out --HgbA1C 6.1 --can stop fingersticks Hypokalemia --resolved FEN Fluids: PO intake adequate Electrolytes: replete as indicated Nutrition: diabetic DVT prophylaxis: subq heparin, oob, ambulation Physical therapy Dispo: continues to require inpatient care. Full code. Visit type - Emergency Visit Emergency Visit: Yes ED Registration Date: 06/05/18 Care time: The patient presented to the Emergency Department on the above date and was hospitalized for further evaluation of their emergent condition. - New Patient This patient is new to me today: No - Critical Care Critical Care patient: No
[2018-06-08] MEDS ORDERED: ATENOLOL 25 MG TABLET (FP) PO SCH (11:15)
--- NOTE | 2018-06-08 12:57 | PN ---
Progress Note (short form) - Note Progress Note: Renal follow up for hyponatremia Pt seen and examined at the bedside no acute complaints no sob, chest pain, abd pain, N/V Vital Signs Temperature 97.8 F 06/08/18 07:00 Pulse Rate 80 06/08/18 07:00 Respiratory Rate 20 06/08/18 07:00 Blood Pressure 158/74 06/08/18 07:00 O2 Sat by Pulse Oximetry (%) 100 06/08/18 00:11 Intake & Output 06/05/18 06/06/18 06/07/18 06/08/18 23:59 23:59 23:59 23:59 Intake Total 3360 690 410 60 Output Total 400 200 Balance 2960 490 410 60 NAD awake and alert No JVD neck supple RRR CTA soft NT/ND No LE edema CBC, BMP 06/08/18 05:30 06/08/18 05:30 Current Medications Amlodipine Besylate (Norvasc -) 10 mg PO DAILY [facility] Last Admin: 06/08/18 09:19 Dose: Not Given Atenolol (Tenormin -) 25 mg PO DAILY [facility] Last Admin: 06/08/18 11:26 Dose: 25 mg Heparin Sodium (Porcine) (Heparin -) 5,000 unit SQ TID [facility] Last Admin: 06/08/18 06:55 Dose: 5,000 unit Levothyroxine Sodium (Synthroid -) 25 mcg PO DAILY@0700 [facility] Last Admin: 06/08/18 06:55 Dose: 25 mcg Lorazepam (Ativan -) 0.25 mg PO Q6H PRN PRN Reason: NAUSEA Pantoprazole Sodium (Protonix -) 40 mg PO DAILY [facility] Last Admin: 06/08/18 09:19 Dose: Not Given Sodium Chloride (Sodium Chloride Tablet -) 1 gm PO BID [facility] Last Admin: 06/08/18 09:20 Dose: Not Given Sucralfate (Carafate -) 1 gm PO TID [facility] 83 year old woman with hx of hypertension, chronic gastritis and DM who presented with N/V and epigastric pain and noted to be hyponatremic. #Hypo-osmolar hyponatremia likely secondary to SIADH vs. Thiazide induced volume depletion #OLEG #Hypertension #N/V with epigatric pain #hyopkalemia serum Na sligly lower repeat urine studies today increase salt tabs to TID, continue fluid restriction renal function improved Korey Carpenter DO
[2018-06-08] MEDS ORDERED: LORazepam 0.5 MG TABLET PO PRN (17:52)
[2018-06-08] MEDS ORDERED: PT OWN MED DRAWER 7, Y5N ONE (21:46)
[2018-06-09] MEDS: HEPARIN NA (PORCINE) 5,000 UNITS/ML 1ML VIAL SQ SCH ×3 (06:00→21:11)
[2018-06-09] MEDS: LEVOTHYROXINE NA 25 MCG TABLET (FP) PO SCH (06:00)
[2018-06-09] MEDS: SUCRALFATE 1 GM TABLET (FP) PO SCH ×3 (06:00→21:11)
[2018-06-09 08:09] LABS: CHLORIDE 88 mmol/L (98-107); POTASSIUM 3.7 mmol/L (3.5-5.1); SODIUM 127 mmol/L (136-145)
[2018-06-09 08:18] LABS: ANION GAP 8 (8-16); BLOOD UREA NITROGEN 19 mg/dL (7-18); CALCIUM 9.1 mg/dL (8.5-10.1); CO2 31 mmol/L (21-32); CREATININE 0.9 mg/dL (0.55-1.02); GLUCOSE,RANDOM 111 mg/dL (74-106); MAGNESIUM 1.6 mg/dL (1.8-2.4)
[2018-06-09] MEDS ORDERED: MAGNESIUM SULF 50% (8.12 MEQ/2 ML-1 GM VIAL) IVPB ONE (09:01)
[2018-06-09] MEDS ORDERED: MAGNESIUM SULFATE IN WATER 2 GM/50 ML IVPB IVPB ONE (10:00)
[2018-06-09] MEDS ORDERED: PT OWN MED DRAWER 7, Y5N ONE ×3 (10:57→21:08)
[2018-06-09] MEDS: ATENOLOL 25 MG TABLET (FP) PO SCH (10:59)
[2018-06-09] MEDS: amLODIPine BESYLATE 10 MG TABLET (FP) PO SCH (10:59)
[2018-06-09] MEDS: PANTOPRAZOLE 40 MG TABLET (FP) PO SCH (10:59)
[2018-06-09] MEDS: SODIUM CHLORIDE 1 GM TABLET PO SCH ×2 (10:59→21:11)
--- NOTE | 2018-06-09 14:28 | PN ---
Physical Exam: SUBJECTIVE: Patient seen and examined OBJECTIVE: Vital Signs Period Temp Pulse Resp BP Sys/Prabhakar Pulse Ox Last 24 Hr 97.5 F-99.0 F 66-84 16-20 131-162/61-79 100-100 GENERAL: The patient is awake, alert, and fully oriented, in no acute distress. HEAD: Normal with no signs of trauma. EYES: PERRL, extraocular movements intact, sclera anicteric, conjunctiva clear. No ptosis. ENT: Ears normal, nares patent, oropharynx clear without exudates, moist mucous membranes. NECK: Trachea midline, full range of motion, supple. LUNGS: Breath sounds equal, clear to auscultation bilaterally, no wheezes, no crackles, no accessory muscle use. HEART: Regular rate and rhythm, S1, S2 without murmur, rub or gallop. ABDOMEN: Soft, nontender, nondistended, normoactive bowel sounds, no guarding, no rebound, no hepatosplenomegaly, no masses. EXTREMITIES: 2+ pulses, warm, well-perfused, no edema. NEUROLOGICAL: Cranial nerves II through XII grossly intact. Normal speech, gait not observed. PSYCH: Normal mood, normal affect. SKIN: Warm, dry, normal turgor, no rashes or lesions noted Laboratory Results - last 24 hr 06/08/18 06/09/18 06/09/18 22:21 02:13 02:13 Sodium Potassium Chloride Carbon Dioxide Anion Gap BUN Creatinine Creat Clearance w eGFR POC Glucometer 132 Random Glucose Calcium Magnesium Urine Osmolality 358 Ur Random Sodium 70 06/09/18 06:55 Sodium 127 L Potassium 3.7 Chloride 88 L Carbon Dioxide 31 Anion Gap 8 BUN 19 H Creatinine 0.9 Creat Clearance w eGFR 59.80 POC Glucometer Random Glucose 111 H Calcium 9.1 Magnesium 1.6 L Urine Osmolality Ur Random Sodium Active Medications Generic Name Dose Route Start Last Admin Trade Name Freq PRN Reason Stop Dose Admin Amlodipine Besylate 10 mg 06/09/18 10:00 06/09/18 10:59 Norvasc - PO 10 mg DAILY [facility] Administration Atenolol 25 mg 06/09/18 10:00 06/09/18 10:59 Tenormin - PO 25 mg DAILY [facility] Administration Heparin Sodium (Porcine) 5,000 unit 06/08/18 22:00 06/09/18 14:27 Heparin - SQ 5,000 unit TID [facility]ER[facility] Administration Levothyroxine Sodium 25 mcg 06/09/18 07:00 06/09/18 06:00 Synthroid - PO 25 mcg DAILY@0700 [facility] Administration Lorazepam 0.25 mg 06/08/18 17:52 06/08/18 22:26 Ativan - PO 0.25 mg Q6H PRN Administration ANXIETY Pantoprazole Sodium 40 mg 06/09/18 10:00 06/09/18 10:59 Protonix - PO 40 mg DAILY [facility] Administration Sodium Chloride 1 gm 06/08/18 22:00 06/09/18 10:59 Sodium Chloride Tablet - PO 1 gm BID [facility] Administration Sucralfate 1 gm 06/08/18 22:00 06/09/18 14:27 Carafate - PO 1 gm TID [facility] Administration ASSESSMENT/PLAN:
[2018-06-09] MEDS ORDERED: LORazepam 0.5 MG TABLET PO ONE (21:21)
[2018-06-10] MEDS: SUCRALFATE 1 GM TABLET (FP) PO SCH ×2 (06:21→14:15)
[2018-06-10] MEDS: LEVOTHYROXINE NA 25 MCG TABLET (FP) PO SCH (06:21)
[2018-06-10] MEDS: HEPARIN NA (PORCINE) 5,000 UNITS/ML 1ML VIAL SQ SCH ×2 (06:21→14:15)
[2018-06-10 07:03] LABS: ANION GAP 9 (8-16); BLOOD UREA NITROGEN 21 mg/dL (7-18); CALCIUM 8.9 mg/dL (8.5-10.1); CHLORIDE 92 mmol/L (98-107); CO2 30 mmol/L (21-32); CREATININE 0.9 mg/dL (0.55-1.02); GLUCOSE,RANDOM 111 mg/dL (74-106); MAGNESIUM 1.8 mg/dL (1.8-2.4); POTASSIUM 3.8 mmol/L (3.5-5.1); SODIUM 131 mmol/L (136-145)
[2018-06-10] MEDS ORDERED: PT OWN MED DRAWER 7, Y5N ONE (09:57)
[2018-06-10] MEDS: amLODIPine BESYLATE 10 MG TABLET (FP) PO SCH (10:01)
[2018-06-10] MEDS: ATENOLOL 25 MG TABLET (FP) PO SCH (10:01)
[2018-06-10] MEDS: SODIUM CHLORIDE 1 GM TABLET PO SCH (10:02)
[2018-06-10] MEDS: PANTOPRAZOLE 40 MG TABLET (FP) PO SCH (10:02)
--- NOTE | 2018-06-10 14:06 | DS ---
Physical Exam: SUBJECTIVE: Patient seen and examined at bedside. OBJECTIVE: Vital Signs Period Temp Pulse Resp BP Sys/Prabhakar Pulse Ox Last 24 Hr 98.1 F-98.9 F 66-86 18-20 131-158/65-90 99-99 PHYSICAL EXAM GENERAL: The patient is awake, alert, in no acute distress. LUNGS: Breath sounds equal, clear to auscultation bilaterally, no wheezes, no crackles, no accessory muscle use. HEART: Regular rate and rhythm, S1, S2 ABDOMEN: Soft, nontender, nondistended EXTREMITIES: 2+ pulses, warm, well-perfused, no edema. NEUROLOGICAL: Cranial nerves II through XII grossly intact. LABS Laboratory Results - last 24 hr 06/10/18 05:30 Sodium 131 L Potassium 3.8 Chloride 92 L Carbon Dioxide 30 Anion Gap 9 BUN 21 H Creatinine 0.9 Creat Clearance w eGFR 59.80 Random Glucose 111 H Calcium 8.9 Magnesium 1.8 HOSPITAL COURSE: Date of Admission:06/05/18 Date of Discharge: 06/10/18 83 year-old female with a PMH significant for HTN, NIDDM, and chronic gastritis. Admitted for vomiting and abdominal pain. Found to have hyponatremia. Hypo-osmolar hyponatremia likely secondary to SIADH v. thiazide-induced volume depletion --Na 130 on admission, dropped to 124, now trended up to 131 --ADH release from volume losses: vomiting and thiazide therapy --will continue salt tabs on discharge BID --no HCTZ --may resume valsartan as renal function stable Hypothyroidism --TSH elevated, start levothyroxine --will need outpatient followup Nausea/Vomiting --no further episodes during hospital stay Chronic gastritis --carafate BID --protonix daily --second hospitalization this month, chronic issues; had EGD last year --seen and evaluated by GI; no endoscopic intervention planned, stable from GI perspective; outpatient followup Hypertension --BP elevated, start atenolol 25mg daily; continue amlodipine; resume Valsartan; stop HCTZ; stop clonidine NIDDM ruled out --HgbA1C 6.1 -- Hypokalemia --resolved Minutes to complete discharge: 35 Discharge Summary Reason For Visit: CHRONIC GASTRITIS,INCREASED LACTIC ACID LEVEL Current Active Problems Chronic gastritis (Acute) Dyspepsia (Acute) Elevated lactic acid level (Acute) Hypertension (Acute) Condition: Fair - Instructions - Home Medications Comprehensive Discharge Medication List: Ambulatory Orders Clonidine HCl 0.1 mg PO DAILY 06/04/18 Hydrochlorothiazide 12.5 mg PO DAILY 06/04/18 Valsartan 320 mg PO DAILY 06/04/18 - Discharge Referral Referred to [facility] No
[2018-06-10 16:04] VITALS: BP 118/61; PULSE 66; TEMP 98.1
--- NOTE | 2018-06-10 16:52 | PN ---
Progress Note (short form) - Note Progress Note: Renal follow up for hyponatremia Pt seen and examined at the bedside feels better no sob, cp, abd pain, n/v/d tolerating oral diet Vital Signs Temperature 98.1 F 06/10/18 16:01 Pulse Rate 66 06/10/18 16:01 Respiratory Rate 20 06/10/18 16:01 Blood Pressure 118/61 06/10/18 16:01 O2 Sat by Pulse Oximetry (%) 99 06/10/18 11:00 Intake & Output 06/07/18 06/08/18 06/09/18 06/10/18 23:59 23:59 23:59 23:59 Intake Total 410 670 370 760 Balance 410 670 370 760 Weight 45.359 kg NAD RRR CTA soft NT/ND No LE edema CBC, BMP 06/08/18 05:30 06/10/18 05:30 83 year old woman with hx of hypertension, chronic gastritis and DM who presented with N/V and epigastric pain and noted to be hyponatremic. #Hypo-osmolar hyponatremia likely secondary to SIADH vs. Thiazide induced volume depletion #OLEG #Hypertension #N/V with epigatric pain #hyopkalemia serum na now improved to normal limits now that N/V resolve suspect Na should normalize over time continue salt tabs BID for now would not restart HCTZ follow up for monitoring of Na in 1-2 weeks stable for discharge Korey Carpenter DO
== END 2018-06-10 16:46 | disposition home or self-care (01) | DRG 644 ==
LOC: JER 09:02 → JERBED 10:52 → J8W 13:36 → J4W 15:48 → OBSVTOIN 06-05 13:24 → J5S 06-08 20:32
PROVIDERS: ADMIT Hospitalist; ATTEND Nurse Practitioner Acute Care
DX: E22.2 Syndrome of inappropriate secretion of antidiuretic hormone (principal); E87.2 Acidosis; T50.2X5A Adverse effect of carbonic-anhydrase inhibitors, benzothiadiazides and other diuretics, initial encounter; I16.0 Hypertensive urgency; E87.6 Hypokalemia; E83.42 Hypomagnesemia; E83.39 Other disorders of phosphorus metabolism; I45.81 Long QT syndrome; K29.50 Unspecified chronic gastritis without bleeding; E03.9 Hypothyroidism, unspecified; I10 Essential (primary) hypertension; R41.0 Disorientation, unspecified; T42.4X5A Adverse effect of benzodiazepines, initial encounter; E86.0 Dehydration
CPT/HCPCS: 36415; 71045-TC-FY; 74176-TC; 80048; 80053; 81003; 81015; 82272; 82533; 82550; 82570; 82962; 83036; 83605; 83690; 83735; 83930; 83935; 84100; 84300; 84439; 84443; 84481; 84484; 85025; 86850; 86900; 86901; 90670; 93005; 93010; 97116-GP; 97161-GP; 99285-25; G0378; J0735; J1644; J7030